=== PATIENT | male | born 1980 | race Two or more races ===

== ENCOUNTER 2023-12-30 11:49 | Emergency (ER) | payer OTHER ==
[~2023-12-30] VITALS: Ht 180.3 cm; Wt 120.2 kg
[2023-12-30 12:54] LABS: HEMOGLOBIN 15.1 g/dL (13-16.00); MEAN CELL VOLUME 85.5 fL (80.0-100.00); MEAN CORPUSCULAR HEMOGLOBIN 29.3 pg (27.00-32.0); MEAN CORPUSCULAR HGB CONC 34.2 g/dl (32.0-36.0); PLATELET COUNT 139 K/uL (150-450); RED BLOOD COUNT 5.15 M/uL (4.00-6.00); RED CELL DISTRIBUTION WIDTH 13.4 % (11.5-14.5)
[2023-12-30 13:27] LABS: CALCIUM 8.8 mg/dL (8.5-10.1); CREATININE SERUM 0.99 mg/dL (0.70-1.30); GFR 81.75; POTASSIUM 4.18 mEq/L (3.5-5.1)
== END 2023-12-30 13:53 | disposition home or self-care (01) ==
LOC: ER 11:50
PROVIDERS: Emergency Medicine
DX: F41.9 Anxiety disorder, unspecified (principal); R07.89 Other chest pain